=== PATIENT | male | born 1975 | race African-American/Black ===

== ENCOUNTER 2017-10-29 23:04 | Emergency (ER) | payer MEDICAID ==
[~2017-10-29] VITALS: Ht 180.3 cm; Wt 102.1 kg
[2017-10-29 23:20] VITALS: BP 127/75
[2017-10-29] MEDS ORDERED: HYDROcodone/Acetamin 10/325 tab ORAL ONE (23:30)
[2017-10-29] MEDS ORDERED: Ketorolac 60mg Inj IM ONE (23:30)
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
[2017-10-30] MEDS ORDERED: IBUPROFEN600 MG ORAL (00:21)
[2017-10-30] MEDS ORDERED: ROBAXIN-750750 MG PO (00:21)
[2017-10-30] MEDS ORDERED: PREDNISONE20 MG ORAL (00:21)
[2017-10-30] MEDS ORDERED: ACETAMINOPHEN-1 EAC1 ORAL (00:21)
[2017-10-30 00:40] VITALS: BP 127/75
== END 2017-10-30 00:40 | disposition home or self-care (01) ==
LOC: EMR 23:23
DX: M54.5 Low back pain (principal); I10 Essential (primary) hypertension
CPT/HCPCS: 96372; 99283